=== PATIENT | male | born 1980 | race African-American/Black ===

== ENCOUNTER 2018-06-16 14:12 | Emergency (ER) | payer OTHER ==
[~2018-06-16] VITALS: Ht 185.4 cm; Wt 111.1 kg
[2018-06-16 14:35] VITALS: BP 159/78
--- NOTE | 2018-06-16 15:11 | RAD ---
Examination: 3 views of the left wrist HISTORY: History of left wrist pain after injury COMPARISON: None available. FINDINGS: The alignment of the carpal bones grossly appears unremarkable. There is no acute fracture or dislocation identified IMPRESSION: No acute osseous findings Electronically signed by: Fahad Proctor MD (06/16/2018 3:08 PM) [place] [id number]
[2018-06-16] MEDS ORDERED: NAPR-514 PO (15:43)
--- NOTE | 2018-06-16 15:43 | PHYS DOC ---
Past Medical History Past Medical History: No Pertinent History Past Surgical History: No Surgical History Alcohol Use: Occasionally Drug Use: None Adult General Chief Complaint Chief Complaint: WRIST PAIN HPI HPI Patient is a 37 year old male accompanied by his , with complaints of left wrist pain since yesterday. 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 He reports left wrist pain with movement and swelling at the base of his left thumb. He denies any numbness or tingling, patient currently denies any pain. Review of Systems Review of Systems Constitutional: Denies fever or chills [] Eyes: Denies change in visual acuity, redness, or eye pain [] Musculoskeletal:See HPI Integument: Denies rash or skin lesions [] Neurologic: Denies headache, focal weakness or sensory changes [] Allergies Allergies Allergies Coded Allergies Type Severity Reaction Last Updated Verified No Known Drug Allergies 06/16/18 No Physical Exam Physical Exam Constitutional: Well developed, well nourished, no acute distress, non-toxic appearance. [] HENT: Normocephalic, atraumatic, bilateral external ears normal, nose normal. [] Eyes: PERRLA, no discharge. [] Neck: Normal range of motion, no stridor. [] Cardiovascular:Heart rate regular rhythm Lungs & Thorax: respirations even and unlabored, no retractions, no distress Skin: Warm, dry, no erythema, no rash. [] Extremities: No cyanosis, no clubbing; limited ROM left wrist due to pain, no palpable deformity or crepitus, 2+ radial pulse Neurologic: Alert and oriented X 3, normal motor function, normal sensory function, no focal deficits noted. [] Psychologic: Affect normal, judgement normal, mood normal. [] Current Patient Data Vital Signs EKG EKG [] Radiology/Procedures Radiology/Procedures PROCEDURE: WRIST 3V LEFT Examination: 3 views of the left wrist HISTORY: History of left wrist pain after injury COMPARISON: None available. FINDINGS: The alignment of the carpal bones grossly appears unremarkable. There is no acute fracture or dislocation identified IMPRESSION: No acute osseous findings[] Course & Med Decision Making Course & Med Decision Making Pertinent Labs and Imaging studies reviewed. (See chart for details) [] Dragon Disclaimer Dragon Disclaimer This electronic medical record was generated, in whole or in part, using a voice recognition dictation system. Departure Departure Impression: Primary Impression: Left wrist sprain Disposition: HOME, SELF-CARE Condition: STABLE Referrals: NO PCP (PCP) Patient Instructions: Wrist Pain, [id number], Wrist Sprain with Rehab- [facility] Additional Instructions: Fill prescription(s) and use as directed. Recommend application of ice, elevation, and rest of affected extremity. Wear the Leonel wrap as needed for comfort. Follow-up with your work comp doctor. Return to the ER if your symptoms worsen. Scripts Naproxen (NAPROXEN) 500 Mg Tablet 500 MG PO BID PRN for PAIN for 10 Days, #20 TAB 0 Refills Prov: JAN STEWART APRN 06/16/18 Problem Qualifiers Primary Impression: Left wrist sprain Encounter type: initial encounter Qualified Codes: S63.502A - Unspecified sprain of left wrist, initial encounter JAN STEWART APRN Jun 16, 2018 15:43
== END 2018-06-16 15:59 | disposition home or self-care (01) ==
LOC: ER 14:12
DX: S63.502A Unspecified sprain of left wrist, initial encounter (principal); W23.0XXA Caught, crushed, jammed, or pinched between moving objects, initial encounter; Y93.89 Activity, other specified; Y92.69 Other specified industrial and construction area as the place of occurrence of the external cause; Y99.0 Civilian activity done for income or pay
CPT/HCPCS: 73110; 99283